=== PATIENT | female | born 1995 | race Caucasian/White ===

== ENCOUNTER 2017-09-20 15:28 | Emergency (ER) | payer OTHER ==
[~2017-09-20] VITALS: Ht 162.6 cm; Wt 55.0 kg
[2017-09-20 15:36] VITALS: Ht 162.6 cm; Wt 55.0 kg
[2017-09-20 16:51] VITALS: BP 111/83
== END 2017-09-20 16:51 | disposition home or self-care (01) ==
LOC: ED 15:28
DX: K13.0 Diseases of lips (principal); B00.1 Herpesviral vesicular dermatitis